=== PATIENT | female | born 1975 ===

== ENCOUNTER 2017-09-12 14:18 | Emergency (ER) | payer OTHER ==
[2017-09-12 14:33] VITALS: BMI 35.9
--- NOTE | 2017-09-12 14:42 | C.PDOC ---
History Of Present Illness 42 y/o female involuntarily presents to the ED via EMS for psychiatric evaluation. As per EMS, an cathead worker from [facility] presented to patient's house for crisis evaluation. When patient refused to open the door, the police were called and broke her door down. Patient then become increasingly agitated and now presents to the ED because she was too violent to travel the distance to [facility]. In ED, patient is calm and cooperative. Patient states she was evaluated in [place] ED last night after she developed a rash after eating some peanuts. During her stay, patient underwent psychiatric evaluation (reason unknown) and was discharged. Patient is unsure who called EMS and why the cathead worker from [facility] is trying to evaluate her. Patient feels like she is being harassed by the psychiatric staff at [facility] and police. She denies suicidal/homicidal ideation, auditory/visual hallucinations, agitation and has no complaints at this time. Patient denies psychiatric history but states her mother has schizophrenia and daughter has schizophrenia and bipolar disorder. Chief Complaint (Nursing): Psychiatric Evaluation History Per: Patient, EMS History/Exam Limitations: no limitations Onset/Duration Of Symptoms: Hrs Current Symptoms Are (Timing): Gone Suicide/Self Injury Attempted (Context): None Associated Symptoms: denies: Agitation, Suicidal Thoughts, Suicidal Plan Involuntary Hold By: None Recent travel outside of the [place]: No Additional History Per: Patient, EMS Past Medical History Reviewed: Historical Data, Nursing Documentation, Vital Signs Vital Signs: Last Vital Signs Temp 98.5 F 09/12/17 14:33 Pulse 87 09/12/17 14:33 Resp 18 09/12/17 14:33 BP 134/83 09/12/17 14:33 Pulse Ox 100 09/12/17 18:48 - Medical History PMH: Anemia, Asthma, Bronchitis (08/02/16), Diabetes, HTN (HX, no meds), Migraine Denies: Chronic Kidney Disease Surgical History: No Surg Hx - [facility] Procedures INJECT/INFUSE NEC (12/11/14) NEBULIZER THERAPY (07/06/14) Family History: States: Unknown Family Hx - Social History Hx Alcohol Use: No Hx Substance Use: No Review Of Systems Psych: Negative for: Suicidal ideation, Other (hallucinations, agitation) Physical Exam - Physical Exam Appears: Non-toxic, No Acute Distress, Other (calm, cooperative ) Skin: Normal Color, Warm, Dry Head: Atraumatic, Normacephalic Eye(s): bilateral: Normal Inspection Oral Mucosa: Moist Neck: Supple Chest: Symmetrical, No Deformity, No Tenderness Cardiovascular: Rhythm Regular, No Murmur Respiratory: Normal Breath Sounds, No Rales, No Rhonchi, No Wheezing Extremity: Normal ROM, Capillary Refill (less than 2 seconds ) Neurological/Psych: Oriented x3, Normal Speech, Normal Cognition Gait: Steady ED Course And Treatment - Laboratory Results Result Diagrams: 09/12/17 17:36 09/12/17 17:36 Lab Interpretation: No Acute Changes (Urine + squamous cells with only 2 WBC, Not a clean catch. No indication of infection in an asymptomatic patient and does not require treatment.) O2 Sat by Pulse Oximetry: 100 (on RA) Pulse Ox Interpretation: Normal Progress Note: Patient remains cooperative and quiet in ED. Labs reviewed and patient is medically cleared for psychiatric evaluation. [facility] screener will be here to evaluate. [facility] required repeat urine prior to evaluation. Repeat specimen still not a clean catch. Required straight catheterization to obtain an adequate specimen. Disposition - Disposition Disposition Time: 00:17 Condition: STABLE Forms: [employer] (Korean) - Clinical Impression Clinical Impression: Manic bipolar I disorder - Scribe Statement The provider has reviewed the documentation as recorded by the Scribe (Donna Acuna) Provider Attestation: All medical record entries made by the Scribe were at my direction and personally dictated by me. I have reviewed the chart and agree that the record accurately reflects my personal performance of the history, physical exam, medical decision making, and the department course for this patient. I have also personally directed, reviewed, and agree with the discharge instructions and disposition. Physician Patient Turnover Patient Signed Over To: Carly Peoples Handoff Comments: pending [facility] evaluation.
[2017-09-12 17:43] LABS: BASO # 0.1 K/uL (0.0-0.2); BASO % 0.8 % (0.0-2.0); EOS # 0.5 K/uL (0.0-0.7); EOS % 3.6 % (0.0-4.0); HEMOGLOBIN 11.9 g/dL (11.0-16.0); LYMPH # 2.4 K/uL (1.0-4.3); LYMPH % 17.9 % (20.0-40.0); MEAN CORPUSCULAR HEMOGLOBIN 25.3 pg (27.0-31.0); MEAN PLATELET VOLUME 8.6 fL (7.2-11.7); MONO % 7.2 % (0.0-10.0); NEUT # 9.4 K/uL (1.8-7.0); NEUT % 70.5 % (50.0-75.0); RBC 4.71 Mil/uL (3.80-5.20); WHITE BLOOD COUNT 13.3 K/uL (4.8-10.8)
[2017-09-12 17:50] LABS: HCG,QUALITATIVE URINE NEGATIVE (NEGATIVE)
[2017-09-12 17:53] LABS: SQUAMOUS EPITHIAL 14 /hpf (0-5); URINE BACTERIA RARE (<OCC); URINE BILIRUBIN NEGATIVE (NEGATIVE); URINE BLOOD 1+ (NEGATIVE); URINE CLARITY Hazy (Clear); URINE COLOR Yellow (YELLOW); URINE GLUCOSE (UA) NORMAL (Normal); URINE LEUKOCYTE ESTERASE TRACE Leu/uL (Negative); URINE NITRATE NEGATIVE (NEGATIVE); URINE PROTEIN 1+ mg/dL (NEGATIVE); URINE UROBILINOGEN NORMAL mg/dL (0.2-1.0)
[2017-09-12 18:08] LABS: ALBUMIN 3.9 g/dL (3.5-5.0); ALT/SGPT 32 U/L (9-52); AST/SGOT 21 U/L (14-36); BLOOD UREA NITROGEN 10 mg/dL (7-17); CALCIUM 8.5 mg/dl (8.6-10.4); GFR AFRICAN-AMERICAN > 60; GFR NON-AFRICAN AMERICAN > 60
[2017-09-12 18:09] LABS: BARBITURATES, UR NEGATIVE (NEGATIVE); BENZODIAZEPINES, UR NEGATIVE (NEGATIVE); OPIATES, UR NEGATIVE (NEGATIVE); PHENCYCLIDINE, UR NEGATIVE (NEGATIVE)
[2017-09-12 20:58] LABS: SQUAMOUS EPITHIAL 23 /hpf (0-5); URINE BACTERIA RARE (<OCC); URINE BILIRUBIN NEGATIVE (NEGATIVE); URINE BLOOD NEGATIVE (NEGATIVE); URINE CLARITY Hazy (Clear); URINE COLOR Yellow (YELLOW); URINE GLUCOSE (UA) NORMAL (Normal); URINE LEUKOCYTE ESTERASE 1+ Leu/uL (Negative); URINE NITRATE NEGATIVE (NEGATIVE); URINE PROTEIN NEGATIVE (NEGATIVE); URINE UROBILINOGEN NORMAL mg/dL (0.2-1.0)
[2017-09-12 23:11] LABS: URINE COLOR YELLOW (YELLOW)
[2017-09-12 23:12] LABS: SQUAMOUS EPITHIAL 5 /hpf (0-5); URINE BILIRUBIN NEGATIVE (NEGATIVE); URINE BLOOD NEGATIVE (NEGATIVE); URINE CLARITY SL HAZY (Clear); URINE GLUCOSE (UA) NEGATIVE (Normal); URINE LEUKOCYTE ESTERASE NEGATIVE Leu/uL (Negative); URINE NITRATE NEGATIVE (NEGATIVE); URINE PROTEIN NEGATIVE (NEGATIVE); URINE UROBILINOGEN 0.2 mg/dL (0.2-1.0)
[2017-09-12 23:13] LABS: URINE AMORPHOUS SEDIMENT OCC /ul (<OCC)
[2017-09-13 05:21] VITALS: RESP 20
[2017-09-13 07:14] VITALS: BP 117/73; PULSE 77; TEMP 98.3; O2SAT 99
--- NOTE | 2017-09-13 07:47 | RAD ---
HISTORY: chest pain COMPARISON: None TECHNIQUE: Chest PA and lateral FINDINGS: LUNGS: No focal consolidation is seen. PLEURA: No pleural effusion is identified. CARDIOVASCULAR: Heart size is within normal limits. OSSEOUS STRUCTURES: No significant abnormalities. VISUALIZED UPPER ABDOMEN: Unremarkable. OTHER FINDINGS: None. IMPRESSION: No acute cardiopulmonary process seen.
--- NOTE | 2017-09-14 23:34 | CARD ---
APPROVED REPORT EKG Measurement Heart [id number] <Conclusion> Normal sinus rhythm Normal ECG
== END 2017-09-13 07:38 | disposition short-term general hospital (02) ==
LOC: C.ER 14:18
DX: F31.10 Bipolar disorder, current episode manic without psychotic features, unspecified (principal)

== ENCOUNTER 2018-01-30 14:12 | Emergency (ER) | payer OTHER ==
[2018-01-30 14:13] VITALS: BMI 35.9
[2018-01-30 14:21] VITALS: BP 150/99; PULSE 100; RESP 20; TEMP 99.8; O2SAT 98
--- NOTE | 2018-01-30 15:27 | C.PDOC ---
Time Seen by Provider: 01/30/18 14:23 Chief Complaint (Nursing): Psychiatric Evaluation History Per: Patient Onset/Duration Of Symptoms: Days Current Symptoms Are (Timing): Still Present Suicide/Self Injury Attempted (Context): None Modifying Factor(s): None Severity: Moderate Associated Symptoms: Anxiety, Depression. denies: Suicidal Thoughts, Suicidal Plan Additional History Per: Prior Records Past Medical History Reviewed: Historical Data, Nursing Documentation, Vital Signs Vital Signs: Last Vital Signs Temp 99.8 F H 01/30/18 14:17 Pulse 100 H 01/30/18 14:17 Resp 20 01/30/18 14:17 BP 150/99 H 01/30/18 14:17 Pulse Ox 98 01/30/18 15:28 - Medical History PMH: Anemia, Anxiety, Asthma, Bipolar Disorder, Bronchitis (08/02/16), Diabetes , HTN, Migraine - [facility] Procedures INJECT/INFUSE NEC (12/11/14) NEBULIZER THERAPY (07/06/14) Family History: States: Unknown Family Hx, Diabetes, Hypertension - Social History Hx Tobacco Use: No Hx Alcohol Use: No Hx Substance Use: No Review Of Systems Except As Marked, All Systems Reviewed And Found Negative. Constitutional: Negative for: Fever, Weakness Cardiovascular: Negative for: Chest Pain Respiratory: Negative for: Shortness of Breath Gastrointestinal: Negative for: Vomiting, Abdominal Pain Musculoskeletal: Negative for: Neck Pain Skin: Negative for: Rash Neurological: Negative for: Weakness, Numbness Psych: Positive for: Other (Insomnia). Negative for: Psychosis Physical Exam - Physical Exam Appears: Non-toxic, No Acute Distress Skin: Normal Color, Warm, Dry, No Rash Head: Atraumatic, Normacephalic Eye(s): bilateral: Normal Inspection, PERRL, EOMI Neck: Normal ROM, Supple Cardiovascular: Rhythm Regular Respiratory: Normal Breath Sounds, No Accessory Muscle Use Gastrointestinal/Abdominal: Soft, No Tenderness Back: No CVA Tenderness Extremity: Normal ROM Neurological/Psych: Oriented x3, Normal Motor, Normal Sensation ED Course And Treatment O2 Sat by Pulse Oximetry: 98 Pulse Ox Interpretation: Normal Progress Note: Pt was seen at [place] [facility] last night and had unremarkable labs. Pt was evaluated by the metal engineering process worker who d/w with the psychiatrist Dr. Murphy. He want to see her today in his office. Pt will be sent directly to Dr. Murphy' s office. Disposition Counseled Patient/Family Regarding: Diagnosis, Need For Followup - Disposition Referrals: Jacki Murphy MD [Staff Provider] - Disposition: HOME/ ROUTINE Disposition Time: 15:31 Condition: STABLE Additional Instructions: Go straight to Dr. Murphy's office right now. Forms: General Discharge Instructions - Clinical Impression Clinical Impression: Depressed
== END 2018-01-30 15:48 | disposition home or self-care (01) ==
LOC: C.ER 14:12
DX: F32.9 Major depressive disorder, single episode, unspecified (principal); E11.9 Type 2 diabetes mellitus without complications; I10 Essential (primary) hypertension

== ENCOUNTER 2018-01-30 17:04 | Inpatient (IN) | payer OTHER ==
[2018-01-30 17:05] VITALS: BMI 35.9
--- NOTE | 2018-01-30 17:37 | C.PDOC ---
History Of Present Illness Patient presents to ED c/o feeling increasingly more depressed recently. She has PMhx of depression, not currently on any psychiatric medications; depression has been worse since she and her in July 2017. Patient denies SI/HI, and has no current physical complaints. She was seen in the office today by her psychiatrist Dr. Murphy, who instructed her to come to ED for admission. Time Seen by Provider: 01/30/18 17:22 Chief Complaint (Nursing): Psychiatric Evaluation History Per: Patient History/Exam Limitations: no limitations Onset/Duration Of Symptoms: Persistent Current Symptoms Are (Timing): Still Present Modifying Factor(s): None Severity: Moderate Associated Symptoms: Depression. denies: Suicidal Thoughts Past Medical History Reviewed: Historical Data, Nursing Documentation, Vital Signs Vital Signs: Last Vital Signs Temp 98.5 F 01/30/18 17:10 Pulse 100 H 01/30/18 17:10 Resp 20 01/30/18 17:10 BP 145/91 H 01/30/18 17:10 Pulse Ox 98 01/30/18 17:38 - Medical History PMH: Anemia, Anxiety, Asthma, Bipolar Disorder, Bronchitis (08/02/16), Diabetes , HTN, Migraine - [facility] Procedures INJECT/INFUSE NEC (12/11/14) NEBULIZER THERAPY (07/06/14) Family History: States: Diabetes, Hypertension - Social History Hx Tobacco Use: No Hx Alcohol Use: No Hx Substance Use: No - Immunization History Hx Tetanus Toxoid Vaccination: No Hx Influenza Vaccination: No Hx Pneumococcal Vaccination: No Review Of Systems Constitutional: Negative for: Fever, Chills Cardiovascular: Negative for: Chest Pain, Palpitations Respiratory: Negative for: Shortness of Breath Gastrointestinal: Negative for: Nausea, Vomiting, Abdominal Pain, Diarrhea Psych: Positive for: Depression. Negative for: Suicidal ideation Physical Exam - Physical Exam Appears: Well, Non-toxic, No Acute Distress, Other (flat affect) Head: Normacephalic Eye(s): bilateral: Normal Inspection Oral Mucosa: Moist Cardiovascular: Rhythm Regular Respiratory: Normal Breath Sounds, No Rales, No Rhonchi, No Wheezing Gastrointestinal/Abdominal: Normal Exam, Bowel Sounds, Soft, No Tenderness Neurological/Psych: Oriented x3 Gait: Steady ED Course And Treatment - Laboratory Results Result Diagrams: 01/30/18 17:44 01/30/18 17:44 O2 Sat by Pulse Oximetry: 98 (RA) Pulse Ox Interpretation: Normal Progress Note: Blood work, UA, Upreg, UDS ordered and reviewed. 6:55pm - Patient now complaining of chest pain - EKG and cardiac enzymes ordered. Patient signed out to Dr. Thacker pending labs, ekg. Disposition - Disposition Disposition Time: 19:00 Condition: STABLE Forms: [facility] (Omani) - Clinical Impression Clinical Impression: Depression, Chest pain Physician Patient Turnover Patient Signed Over To: Jurgen Thacker Handoff Comments: pending ekg, labs, reassessment
[2018-01-30 17:49] LABS: BASO # 0.2 K/uL (0.0-0.2); BASO % 1.3 % (0.0-2.0); EOS # 0.1 K/uL (0.0-0.7); EOS % 0.5 % (0.0-4.0); HEMOGLOBIN 12.9 g/dL (11.0-16.0); LYMPH # 1.8 K/uL (1.0-4.3); MEAN CELL VOLUME 78.2 fL (81.0-99.0); MEAN CORPUSCULAR HGB CONC 33.3 g/dL (33.0-37.0); MEAN PLATELET VOLUME 8.2 fL (7.2-11.7); MONO # 0.9 K/uL (0.0-0.8); NEUT # 9.7 K/uL (1.8-7.0); NEUT % 77.2 % (50.0-75.0); RBC 4.96 Mil/uL (3.80-5.20); RED CELL DISTRIBUTION WIDTH 16.7 % (11.5-14.5); WHITE BLOOD COUNT 12.5 K/uL (4.8-10.8)
[2018-01-30 18:08] LABS: ALB/GLOB RATIO 1.2 (1.0-2.1); ALBUMIN 4.8 g/dL (3.5-5.0); ALT/SGPT 29 U/L (9-52); AST/SGOT 26 U/L (14-36); BLOOD UREA NITROGEN 7 mg/dL (7-17); CALCIUM 9.1 mg/dl (8.6-10.4); GFR AFRICAN-AMERICAN > 60; GFR NON-AFRICAN AMERICAN > 60
[2018-01-30 18:15] LABS: HCG,QUALITATIVE URINE NEGATIVE (NEGATIVE)
[2018-01-30 18:18] LABS: SQUAMOUS EPITHIAL 2 /hpf (0-5); URINE BACTERIA RARE (<OCC); URINE BILIRUBIN NEGATIVE (NEGATIVE); URINE BLOOD 3+ (NEGATIVE); URINE CLARITY Clear (Clear); URINE COLOR Straw (YELLOW); URINE GLUCOSE (UA) NORMAL (Normal); URINE LEUKOCYTE ESTERASE TRACE Leu/uL (Negative); URINE PROTEIN NEGATIVE (NEGATIVE); URINE UROBILINOGEN NORMAL mg/dL (0.2-1.0)
[2018-01-30 18:47] LABS: BARBITURATES, UR NEGATIVE (NEGATIVE); BENZODIAZEPINES, UR NEGATIVE (NEGATIVE); OPIATES, UR NEGATIVE (NEGATIVE); PHENCYCLIDINE, UR NEGATIVE (NEGATIVE)
[2018-01-30 19:53] LABS: CK-MB 1.71 ng/mL (0.0-3.38)
--- NOTE | 2018-01-30 22:59 | PCM.BM ---
<Kade Beaulieu - Last Filed: 01/30/18 22:58> Treatment Plan Problems - Problems identified on initial assessmt Depression Date Initiated: 01/30/18 Time Initiated: 21:00 Treatment assets and liabiliti Patient Assests: cooperative, educated, resourceful, self-reliant, ADL independent, physically healthy, good support system, negotiates basic needs Patient Liabilities: relationship conflicts ( from ), medical problems (HTN) - Milieu Protocol Maintain good personal hygiene: daily Encourage regular showers, every shift Remind patient to perform daily oral care, every shift Assist patient to perform ADL's Conduct patient checks and document Observation sheet: Q15 minutes (For safety) <Jacki Murphy - Last Filed: 02/01/18 11:12> - Diagnosis (1) Manic bipolar I disorder Status: Acute Interventions: 02/01/18 11:12 * Assess/adjust medications daily and /or as needed * See patient on an individual basis 7x/week to assess level of manic behaviors and stability * Discuss risks, benefits, side effects and alternatives of medications * <Pinky Mcghee - Last Filed: 02/01/18 11:47> Family Contact Family involvement: Family/SO is involved Family contact: Patient declines to allow family contact at present - Goals for Treatment Patient goals for treatment: "I want to go home." Discharge/Continuing Care - Education Needs Education Needs: Patient Medication, Patient Coping Skills - Discharge Discharge Criteria: Tolerates medication w/o severe side effects, Reduction of target symptoms Discharge to:: Home, With Family - Treatment Team Participation Discussed with Family/SO: No Was Patient/Family/SO present at Treatment Team Meeting: Yes
--- NOTE | 2018-01-31 09:40 | PCM.PSYCH ---
Initial Psychiatric Evaluation - Initial Psychiatric Evaluation Type of Admission: Voluntary Legal Status: Capacity Chief Complaint (in patient's own words): I was increasingly depressed.' History of Present Illness and Precipitating Events: Patient is a 42 y/o female who came to the ED with depressed mood and feeling 'not safe.' Patient stated that she had a prior admission at [facility] [place] [place] in September 2017, when she had a manic episode. Patient reports that she is from her spouse since July which is the cause of her depression. Patient is presently residing with her 22 y/rs old daughter. Patient is not employed since Sunday, as she resign for her job as she was feeling that her job was to stressful as she was working for [employer]. As per the patient since past week she is becoming increasingly depressed, isolative, hopeless and helpless. Patient adds that she feels that she is not functioning, she doesn't feel motivate, confused and out of it. Yesterday she couldn't take it anymore and came to the hospital to get help. She reports depressed mood, at times feelings of hopelessness and helplessness, poor sleep and poor appetite. She was crying during the interview. However she denies any auditory or visual hallucinations or any paranoia. She reports irritability but denies any other manic symptoms. PMH: HTN Current Medications: Active Medications Generic Name Dose Route Start Last Admin Trade Name Freq PRN Reason Stop Dose Admin Hydroxyzine HCl 25 mg 01/30/18 23:27 Atarax PO Q6 PRN Anxiety Trazodone HCl 50 mg 01/30/18 23:30 01/31/18 08:25 Desyrel PO Not Given HS PETEY Past Psychiatric History - Past Psychiatric History Previous Treatment History: Inpatient Pertinent Medical Hx (Current Medical&Sleep Prob, Allergies): Allergies Allergy/AdvReac Type Severity Reaction Status Date / Time PORK Allergy RASH Verified 01/30/18 17:12 shellfish derived Allergy RASH Verified 01/30/18 17:12 shrimp Allergy RASH Verified 01/30/18 17:12 red pepper Allergy SWELLING Uncoded 01/30/18 17:12 Atenolol [Tenormin] 25 mg PO DAILY #14 tablet 09/23/17 Gentamicin Sulfate [Garamycin 0.3% Opth] 1 drop OU QID #1 bottle 09/23/17 Tetracaine 0.5% Ophth [Tetracaine 0.5% Ophth Soln] 1 drop OD Q4H #1 bottle 09/23 Atenolol [Tenormin] 25 mg PO DAILY #10 tab 01/21/18 Review of Systems - Review of Systems All systems: reviewed and no additional remarkable complaints except - Psychiatric Psychiatric: Anxiety, Irritability, Suicidal Ideation Mental Status Examination - Personal Presentation Personal Presentation: Looks stated age - Affect Affect: Constricted, Depressed - Motor Activity Motor Activity: Calm - Reliability in Providing Information Reliability in Providing Information: Fair - Speech Speech: Organized - Mood Mood: Depressed, Anxious - Formal Thought Process Formal Thought Process: No Impairment - Obsessions/Compulsions Obsessions: No Compulsions: No - Cognitive Functions Orientation: Person, Place, Situation, Time Sensorium: Alert Attention/Concentration: Attentive Abstract Thinking: [place] Estimate of Intelligence: Below average Judgement: Imparied, as evidence by: Poor judgement, Imparied, as evidence by: Lack of insight into illness - Risk Risk: Suicidal, Diminished functioning - Limitations Limitations: Living alone DSM 5 DX - DSM 5 DSM 5 Diagnosis: Bipolar disorder most recent episode depressed severe without psychotic features - Recommended/Plan of Treatment Treatment Recommendations and Plan of Treatment: Bipolar disorder most recent episode depressed severe without psychotic features CBT Psychoeducation Supportive therapy, group therapy, individual therapy Zoloft 25 mg PO Daily Trazodone 50 mg by mouth daily at bedtime Hydroxyzine 25 mg PO Q 6 hr - Smoking Cessation Smoking Cessation Initiated: No
--- NOTE | 2018-01-31 09:46 | RAD ---
Chest x-ray two views History: Chest pain. Comparison: 09/13/2017 Findings: No focal infiltrate or effusion. Heart size within normal limits. Osseous structures grossly preserved. Impression: No focal infiltrate or effusion. If there is concern for injury, consider correlation with rib series.
--- NOTE | 2018-01-31 14:05 | CARD ---
APPROVED REPORT EKG Measurement Heart [id number] <Conclusion> Normal sinus rhythm Cannot rule out Anterior infarct, age undetermined Abnormal ECG
--- NOTE | 2018-02-01 11:11 | PCM.PYCHPN ---
Psychiatric Progress Note - Psychiatric Progress Note Patient seen today, length of contact: 15 min Patient Chief Complaint: I was increasingly depressed.' Problems Identified/Issues Discussed: Patient seen and evaluated, chart reviewed and discussed with the nurse. Pt still reports depressed mood but reports some improvement in the feelings of hopelessness and helplessness. She also reports some improvement in sleep. However she remained isolated and withdrawn. She is taking medications and denies any side effects Symptoms are improving but she needs more time for stabilization. Supportive therapy and psychoeducation were given. Medication Change: Yes Medical Record Reviewed: Yes Mental Status Examination - Cognitive Function Orientation: Person, Place, Situation, Time Memory: Intact Attention: WNL Concentration: Poor Association: WNL Fund of Knowledge: Poor - Mood Mood: Depressed, Anxious - Affect Affect: Constricted, Depressed - Speech Speech: Soft - Formal Thought Process Formal Thought Process: No Impairment - Suicidal Ideation Suicidal Ideation: No - Homicidal Ideation Homicidal Ideation: No Goal/Treatment Plan - Goal/Treatment Plan Need for Continued Stay: Severe depression anxiety, Severe functional impairment Progress Toward Problem(s) and Goals/Treatment Plan: Bipolar disorder most recent episode depressed severe without psychotic features CBT Psychoeducation Supportive therapy, group therapy, individual therapy Zoloft 25 mg PO Daily Trazodone 50 mg by mouth daily at bedtime Hydroxyzine 25 mg PO Q 6 hr
--- NOTE | 2018-02-01 15:31 | CP.PCM.CON ---
<Lana Kwon - Last Filed: 02/02/18 00:56> History of Present Illness - History of Present Illness History of Present Illness: Medicine Consult Note for Hospitalist Service- Dr. Dumont CC: nervous, doesn't feel well HPI: This is a 42F with PMHx of HTN, Menorrhagia s/p ablation who is currently admitted to the Psych Unit for depression. Patient reports this morning she got out of bed and started to feel dizzy, lightheaded, and "off". She is menstruating but denied abdominal pain, cramping, or n/v/d/c. She reports feeling her heart racing and numbness and tingling in her hands. She states she does not want to take medications because of the fear of the drug side effects. She reports feeling this before but states it usually resolves on its own. Denied fever, chills, chest pain, or SOB. PMHx: HTN, Menorrhagia, PSHx: Uterine Ablation Meds: Atenolol mg PO QPM All: As listed above SHx: Denied x 3 FHx: Unremarkable PMD: [facility] Past Patient History - Infectious Disease Hx of Infectious Diseases: None - Past Medical History & Family History Past Medical History?: Yes - Past Social History Smoking Status: Never Smoked - CARDIAC Hx Hypertension: Yes - PULMONARY Hx Asthma: Yes Hx Bronchitis: Yes (08/02/16) - NEUROLOGICAL Hx Migraine: Yes - HEENT Hx HEENT Problems: Yes - RENAL Hx Chronic Kidney Disease: No - ENDOCRINE/METABOLIC Hx Diabetes Mellitus Type 2: Yes (HX, no meds at present) - HEMATOLOGICAL/ONCOLOGICAL Hx Anemia: Yes - INTEGUMENTARY Hx Dermatological Problems: No - MUSCULOSKELETAL/RHEUMATOLOGICAL Hx Herniated Disk: Yes Other/Comment: pinched nerve left arm - GASTROINTESTINAL Hx Gastrointestinal Disorders: No - GENITOURINARY/GYNECOLOGICAL Hx Sexually Transmitted Disorders: No - PSYCHIATRIC Hx Substance Use: Yes - SURGICAL HISTORY Hx Surgeries: Yes Hx Dilation and Curettage: Yes Other/Comment: BREAST REDUCTION .2003.LAPAROSCOPY 1996 .EXISION OF ABCESS LOWER [id number] - ANESTHESIA Hx Anesthesia: Yes Hx Anesthesia Reactions: No Hx Malignant Hyperthermia: No Meds Home Medications: Home Medication List Medication Instructions Recorded Confirmed Type Benztropine [Cogentin] 0.5 mg PO BID #60 tab 02/09/18 Rx Sertraline [Zoloft] 25 mg PO DAILY #30 tab 02/09/18 Rx fluPHENAZine [Prolixin] 5 mg PO BID #60 tab 02/09/18 Rx Allergies/Adverse Reactions: Allergies Allergy/AdvReac Type Severity Reaction Status Date / Time PORK Allergy RASH Verified 01/30/18 17:12 shellfish derived Allergy RASH Verified 01/30/18 17:12 shrimp Allergy RASH Verified 01/30/18 17:12 red pepper Allergy SWELLING Uncoded 01/30/18 17:12 - Medications Medications: Current Medications Atenolol (Tenormin) 25 mg PO QPM [facility] Last Admin: 01/31/18 17:48 Dose: 25 mg Hydroxyzine HCl (Atarax) 25 mg PO Q6 PRN PRN Reason: Anxiety Ibuprofen (Motrin Tab) 400 mg PO Q6 PRN PRN Reason: Pain, moderate (4-7) Last Admin: 02/01/18 06:21 Dose: 400 mg Sertraline HCl (Zoloft) 25 mg PO DAILY [facility] Last Admin: 02/01/18 10:34 Dose: Not Given Trazodone HCl (Desyrel) 50 mg PO HS [facility] Last Admin: 01/31/18 22:21 Dose: 50 mg Physical Exam - Constitutional Appears: No Acute Distress - Head Exam Head Exam: NORMAL INSPECTION, NORMOCEPHALIC - Eye Exam Eye Exam: EOMI, Normal appearance, PERRL. absent: Nystagmus, Scleral icterus Pupil Exam: NORMAL ACCOMODATION - ENT Exam ENT Exam: Mucous Membranes Moist, Normal Exam - Neck Exam Neck exam: Positive for: Normal Inspection - Respiratory Exam Respiratory Exam: Clear to Auscultation Bilateral, NORMAL BREATHING PATTERN. absent: Decreased Breath Sounds, Rales, Rhonchi, Wheezes - Cardiovascular Exam Cardiovascular Exam: Tachycardia - GI/Abdominal Exam GI & Abdominal Exam: Soft. absent: Distended, Tenderness - Rectal Exam Rectal Exam: Deferred - Extremities Exam Extremities exam: Positive for: normal inspection. Negative for: pedal edema, tenderness, pedal pulses present - Back Exam Back exam: NORMAL INSPECTION - Neurological Exam Neurological exam: Alert, Oriented x3 - Psychiatric Exam Psychiatric exam: Normal Affect, Normal Mood - Skin Skin Exam: Dry, Intact, Normal Color, Warm Results - Vital Signs Recent Vital Signs: Last Vital Signs Temp 98.1 F 02/01/18 06:41 Pulse 71 02/01/18 06:41 Resp 20 02/01/18 06:41 BP 113/73 02/01/18 06:41 Pulse Ox 97 01/30/18 19:54 - Labs Result Diagrams: 01/30/18 17:44 01/30/18 17:44 Assessment & Plan - Assessment and Plan (Free Text) Plan: Anxiety - Vitals and labs reviewed - EKG: Sinus tachycardia @ 104BPM - no ST changes or t wave inversions - ELLE x2 negative - TSH, Free T4 - WNL - Patient refused any IM or PO medications - Encouraged use to allow relief of her symptoms - Patient seen 30 minutes after episode and 1 hour later; she was seen ambulating and speaking to other people with no issues Hx Menorrhagia s/p ablation 2016 - Hemoglobin stable - Currently menstruating Bipolar disorder Depressed severe without psychotic features - All management as per Psych - Zoloft 25 mg PO Daily, Trazodone 50 mg by mouth daily at bedtime, Hydroxyzine 25 mg PO Q 6 hr Disposition: Thank you for the consult. Medicine team ruled out any cardiac issues that can mimic her pain, likely 2/2 anxiety. Medicine team will be signing off . Please consult as necessary. DW Dr. Dumont, Lana Kwon DO, PGY-1 <Osvaldo Dumont - Last Filed: 02/11/18 18:00> Results - Vital Signs Recent Vital Signs: Last Vital Signs Temp 98.7 F 02/09/18 06:00 Pulse 70 02/09/18 06:00 Resp 18 02/09/18 06:00 BP 120/74 02/09/18 06:00 Pulse Ox 99 02/05/18 06:30 - Labs Result Diagrams: 01/30/18 17:44 01/30/18 17:44 Attending/Attestation - Attestation I have personally seen and examined this patient.: Yes I have fully participated in the care of the patient.: Yes I have reviewed all pertinent clinical information: Yes Notes (Text): Seen and examined. Discussed with the resident. I agree with the documentation of the assessment and the plan
[2018-02-01 17:38] LABS: CK-MB 1.87 ng/mL (0.0-3.38)
--- NOTE | 2018-02-02 08:06 | PCM.PYCHPN ---
Psychiatric Progress Note - Psychiatric Progress Note Patient seen today, length of contact: 16 min Patient Chief Complaint: I was increasingly depressed.' Problems Identified/Issues Discussed: Patient seen and evaluated, chart reviewed and discussed with the nurse. As per staff yesterday patient became increasingly disorganized and appeared internally preoccupied. She was pacing back and forth in her room and appeared paranoid and delusional. She was complaining of a lot of anxiety but refused to come out of her room. She was given Ativan. As per staff patient became increasingly delusional and paranoid in the morning and refused to take medications. Supportive therapy and psychoeducation were given. Medication Change: Yes (Start Prolixin) Medical Record Reviewed: Yes Mental Status Examination - Cognitive Function Orientation: Person, Place, Situation, Time Memory: Intact Attention: WNL Concentration: Poor Association: Loose Fund of Knowledge: Poor - Mood Mood: Depressed, Anxious - Affect Affect: Constricted, Depressed - Speech Speech: Soft - Formal Thought Process Formal Thought Process: Delusions, Paranoia, Loosening of associations - Suicidal Ideation Suicidal Ideation: No - Homicidal Ideation Homicidal Ideation: No Goal/Treatment Plan - Goal/Treatment Plan Need for Continued Stay: Severe depression anxiety, Severe functional impairment Progress Toward Problem(s) and Goals/Treatment Plan: Bipolar disorder most recent episode depressed severe without psychotic features CBT Psychoeducation Supportive therapy, group therapy, individual therapy Zoloft 25 mg PO Daily Trazodone 50 mg by mouth daily at bedtime Hydroxyzine 25 mg PO Q 6 hr P orlixinro 5 mg by mouth twice a day Cogentin 1 mg PO BID
--- NOTE | 2018-02-04 10:20 | PCM.PYCHPN ---
Psychiatric Progress Note - Psychiatric Progress Note Patient seen today, length of contact: 16 min Patient Chief Complaint: I am not feeling good.' Problems Identified/Issues Discussed: Patient seen and evaluated, chart reviewed and discussed with the nurse. As per staff patient is still refusing medication sometimes. Last night she took Ativan and she appeared well. However today she appears somewhat more organized remained paranoid and delusional. She is pacing back and forth in her room and complaining of a lot of anxiety. She is taking selective medications but denies any side effects. Symptoms are improving but she needs more time for stabilization Supportive therapy and psychoeducation were given. Medication Change: Yes (Start Prolixin) Medical Record Reviewed: Yes Mental Status Examination - Cognitive Function Orientation: Person, Place, Situation, Time Memory: Intact Attention: WNL Concentration: Poor Association: Loose Fund of Knowledge: Poor - Mood Mood: Depressed, Anxious - Affect Affect: Constricted, Depressed - Speech Speech: Soft - Formal Thought Process Formal Thought Process: Delusions, Paranoia, Loosening of associations - Suicidal Ideation Suicidal Ideation: No - Homicidal Ideation Homicidal Ideation: No Goal/Treatment Plan - Goal/Treatment Plan Need for Continued Stay: Severe depression anxiety, Severe functional impairment Progress Toward Problem(s) and Goals/Treatment Plan: Bipolar disorder most recent episode depressed severe without psychotic features CBT Psychoeducation Supportive therapy, group therapy, individual therapy Zoloft 25 mg PO Daily Trazodone 50 mg by mouth daily at bedtime Hydroxyzine 25 mg PO Q 6 hr Prolixin 5 mg by mouth twice a day Cogentin 1 mg PO BID
[2018-02-05 06:30] VITALS: O2SAT 99
--- NOTE | 2018-02-05 13:28 | PCM.PYCHPN ---
Psychiatric Progress Note - Psychiatric Progress Note Patient seen today, length of contact: 16 min Patient Chief Complaint: I was increasingly depressed.' Problems Identified/Issues Discussed: Patient seen and evaluated, chart reviewed and discussed with the nurse. As per staff patient is still refusing prolixin . However today she appears somewhat more organized but remained paranoid and delusional. She is pacing back and forth in her room and complaining of a lot of anxiety. She is taking selective medications but denies any side effects. Symptoms are improving but she needs more time for stabilization Supportive therapy and psychoeducation were given. Medication Change: No Medical Record Reviewed: Yes Mental Status Examination - Cognitive Function Orientation: Person, Place, Situation, Time Memory: Intact Attention: WNL Concentration: Poor Association: Loose Fund of Knowledge: Poor - Mood Mood: Depressed, Anxious - Affect Affect: Constricted, Depressed - Speech Speech: Soft - Formal Thought Process Formal Thought Process: Delusions, Paranoia, Loosening of associations - Suicidal Ideation Suicidal Ideation: No - Homicidal Ideation Homicidal Ideation: No Goal/Treatment Plan - Goal/Treatment Plan Need for Continued Stay: Severe depression anxiety, Severe functional impairment Progress Toward Problem(s) and Goals/Treatment Plan: Bipolar disorder most recent episode depressed severe without psychotic features CBT Psychoeducation Supportive therapy, group therapy, individual therapy Zoloft 25 mg PO Daily Trazodone 100 mg by mouth daily at bedtime Hydroxyzine 25 mg PO Q 6 hr Prolixin 5 mg by mouth twice a day Cogentin 1 mg PO BID
--- NOTE | 2018-02-05 14:33 | CARD ---
APPROVED REPORT EKG Measurement Heart [id number] <Conclusion> Sinus tachycardia Otherwise normal ECG
--- NOTE | 2018-02-06 14:09 | PCM.PYCHPN ---
Psychiatric Progress Note - Psychiatric Progress Note Patient seen today, length of contact: 16 min Patient Chief Complaint: I am feeling better.' Problems Identified/Issues Discussed: Patient seen and evaluated, chart reviewed and discussed with the nurse. Today patient appears more organized and less internally preoccupied. She appears less paranoid and less delusional less anxious. As per the staff she started taking Prolixin and other medications. She reports improvement in anxiety and paranoia. She is taking medications but denied any side effects. Symptoms are improving but she needs more time for stabilization Supportive therapy and psychoeducation were given. Medication Change: No Medical Record Reviewed: Yes Mental Status Examination - Cognitive Function Orientation: Person, Place, Situation, Time Memory: Intact Attention: WNL Concentration: Poor Association: Loose Fund of Knowledge: Poor - Mood Mood: Depressed, Anxious - Affect Affect: Constricted, Depressed - Speech Speech: Soft - Formal Thought Process Formal Thought Process: Delusions, Paranoia, Loosening of associations - Suicidal Ideation Suicidal Ideation: No - Homicidal Ideation Homicidal Ideation: No Goal/Treatment Plan - Goal/Treatment Plan Need for Continued Stay: Severe depression anxiety, Severe functional impairment Progress Toward Problem(s) and Goals/Treatment Plan: Bipolar disorder most recent episode depressed severe without psychotic features CBT Psychoeducation Supportive therapy, group therapy, individual therapy Zoloft 25 mg PO Daily Trazodone 100 mg by mouth daily at bedtime Hydroxyzine 25 mg PO Q 6 hr Prolixin 5 mg by mouth twice a day Cogentin 1 mg PO BID
[2018-02-09 06:01] VITALS: BP 120/74; PULSE 70; RESP 18; TEMP 98.7
--- NOTE | 2018-02-09 12:17 | PCM.PYCHPN ---
Psychiatric Progress Note - Psychiatric Progress Note Patient seen today, length of contact: 16 min Patient Chief Complaint: I am feeling better.' Problems Identified/Issues Discussed: Patient seen and evaluated, chart reviewed and discussed with the nurse. Today patient appears more organized. She appears less anxious. She reports improvement in anxiety and paranoia. She is taking medications but denied any side effects. Symptoms are improving but she needs more time for stabilization Supportive therapy and psychoeducation were given. Medication Change: No Medical Record Reviewed: Yes Mental Status Examination - Cognitive Function Orientation: Person, Place, Situation, Time Memory: Intact Attention: WNL Concentration: WNL Association: WNL Fund of Knowledge: WNL - Mood Mood: Anxious - Affect Affect: Constricted - Speech Speech: Soft - Formal Thought Process Formal Thought Process: No Impairment - Suicidal Ideation Suicidal Ideation: No - Homicidal Ideation Homicidal Ideation: No Goal/Treatment Plan - Goal/Treatment Plan Need for Continued Stay: Severe depression anxiety, Severe functional impairment Progress Toward Problem(s) and Goals/Treatment Plan: Bipolar disorder most recent episode depressed severe without psychotic features CBT Psychoeducation Supportive therapy, group therapy, individual therapy Zoloft 25 mg PO Daily Trazodone 100 mg by mouth daily at bedtime Hydroxyzine 25 mg PO Q 6 hr Prolixin 5 mg by mouth twice a day Cogentin 1 mg PO BID
--- NOTE | 2018-02-09 12:20 | PCM.PYCHDC ---
Mental Status Examination - Mental Status Examination Orientation: Person, Place, Situation, Time Memory: Intact Mood: Neutral Affect: Constricted Speech: Soft Attention: WNL Concentration: WNL Association: WNL Fund of Knowledge: WNL Formal Thought Process: No Impairment Description of patient's judgement and insight: good, fair Psychotic Thoughts and Behaviors: denies any AVH Suicidal Ideation: No Current Homicidal Ideation?: No Discharge Summary - Discharge Note Reason for Hospitalization: Patient is a 42 y/o female who came to the ED with depressed mood and feeling 'not safe.' Patient stated that she had a prior admission at [facility] in September 2017, when she had a manic episode. Patient reports that she is from her spouse since July which is the cause of her depression. Patient is presently residing with her 22 y/rs old daughter. Patient is not employed since Sunday, as she resign for her job as she was feeling that her job was to stressful as she was working for [employer]. As per the patient since past week she is becoming increasingly depressed, isolative, hopeless and helpless. Patient adds that she feels that she is not functioning, she doesn't feel motivate, confused and out of it. Yesterday she couldn't take it anymore and came to the hospital to get help. She reports depressed mood, at times feelings of hopelessness and helplessness, poor sleep and poor appetite. She was crying during the interview. However she denies any auditory or visual hallucinations or any paranoia. She reports irritability but denies any other manic symptoms. Consultations:: List each consultation separately and include: 1. Reason for request. 2. Findings. 3. Follow-up Summary of Hospital Course include:: 1. Description of specific treatment plan utilized for patients during their course of treatmen. 2. Summarize the time- course for resolution of acute symptoms and/or regressed behaviors. 3. Describe issues identified and worked on during hospitalization. 4. Describe medication utilized. 5. Describe medical problems identified and treated. 6. Reassessment of suicide risk Summary of Hospital Course: During the course of her stay, patient (pt) started progressively improving and she no longer remained anxious, paranoid, depressed and suicidal. Her mood was getting better and she started attending groups and meetings and started socializing. The doses of her medications were maximized and patient denied any feelings of hopelessness, helplessness, and worthlessness, denied any problem with the sleep or appetite, denied suicidal ideation or homicidal ideation. Pt denied any auditory or visual hallucinations. Patient reported improvement in her mood and tolerated these medications very well and denied any side effects. Patient was discharged with a plan to go to the [facility]. - Diagnosis (1) Manic bipolar I disorder Status: Acute - Final Diagnosis (DSM 5) Condition upon Discharge: STABLE DSM 5: Bipolar disorder most recent episode depressed severe without psychotic features Disposition: HOME/ ROUTINE Follow-up Treatment Plan: Education: Pt was educated and counseled about the risks and benefits of taking and not taking medications. Pt was educated and counseled about the risks of drinking and abusing drugs. Pt was educated and counseled to go to the ER or call 911 if pt develop suicidal ideation or homicidal ideation, worsening of symptoms or severe side effects of the meds. Prescriptions/Medication Reconciliation: Benztropine [Cogentin] 0.5 mg PO BID #60 tab fluPHENAZine [Prolixin] 5 mg PO BID #60 tab Sertraline [Zoloft] 25 mg PO DAILY #30 tab - Smoking Cessation Smoking Cessation Medication prescribed: No - Antipsychotic Medications Pt discharged on 2 or more routine antipsychotic medications: No
== END 2018-02-09 13:35 | disposition home or self-care (01) | DRG 430 ==
LOC: C.ER 17:04 → C.5E 20:02
PROVIDERS: ADMIT Psychiatry & Neurology Psychiatry; ATTEND Psychiatry & Neurology Psychiatry
PROC: GZ3ZZZZ Medication Management (ICD-10-PCS; principal; 2018-01-30)
PROC: GZHZZZZ Group Psychotherapy (ICD-10-PCS; 2018-01-30)
PROC: GZ56ZZZ Individual Psychotherapy, Supportive (ICD-10-PCS; 2018-01-30)
DX: F31.4 Bipolar disorder, current episode depressed, severe, without psychotic features (principal); F41.9 Anxiety disorder, unspecified; E11.9 Type 2 diabetes mellitus without complications; I10 Essential (primary) hypertension; J45.909 Unspecified asthma, uncomplicated; Z79.899 Other long term (current) drug therapy; Z91.013 Allergy to seafood; Z91.018 Allergy to other foods